=== PATIENT | female | born 1965 | race Caucasian/White ===

== ENCOUNTER 2018-05-29 12:34 | Emergency (ER) | payer BC ==
[~2018-05-29] VITALS: Ht 162.6 cm; Wt 118.1 kg
[~2018-05-29 12:34] MED LIST: ESCITALOPRAM OX10 MG PO; METF500T9 PO; MULT1TAB52 PO
--- NOTE | 2018-05-29 12:57 | PHYS DOC ---
Past History Past Medical History: Depression, Hypertension, Hepatitis, Kidney Stones, Other Past Surgical History: Hysterectomy Alcohol Use: Rarely Drug Use: Cocaine Adult General Chief Complaint Chief Complaint: FLANK PAIN HPI HPI 52-year-old female presents with abdominal pain and left flank pain. Patient states the pain started while she was at rest yesterday. It feels similar to previous episodes where she had a kidney stone. The pain has increased during the day today. She has urinary urgency and frequency but very little output. She denies fever or chills at home. Review of Systems Review of Systems Constitutional: Denies fever or chills [] Eyes: Denies change in visual acuity, redness, or eye pain [] HENT: Denies nasal congestion or sore throat [] Respiratory: Denies cough or shortness of breath [] Cardiovascular: No additional information not addressed in HPI [] GI: Denies abdominal pain, nausea, vomiting, bloody stools or diarrhea [] : Urinary urgency[] Musculoskeletal: Left flank pain[] Integument: Denies rash or skin lesions [] Neurologic: Denies headache, focal weakness or sensory changes [] Endocrine: Denies polyuria or polydipsia [] All other systems were reviewed and found to be within normal limits, except as documented in this note. Current Medications Current Medications Current Medications Medications (Trade) Dose Ordered Sig/[facility] Start Time Stop Time Status Last Admin Dose Admin Ketorolac Tromethamine (Toradol 30mg Vial) 30 mg 1X ONCE 05/29/18 13:00 05/29/18 13:01 UNV Sodium Chloride 1,000 ml @ 1,000 mls/hr 1X ONCE 05/29/18 13:00 05/29/18 13:59 UNV Allergies Allergies Allergies Coded Allergies Type Severity Reaction Last Updated Verified Penicillins Allergy Intermediate 07/11/16 Yes codeine Allergy Unknown 01/26/18 Yes Physical Exam Physical Exam Constitutional: Well developed, well nourished, no acute distress, non-toxic appearance. [] HENT: Normocephalic, atraumatic, bilateral external ears normal, oropharynx moist, no oral exudates, nose normal. [] Eyes: PERRLA, EOMI, conjunctiva normal, no discharge. [] Neck: Normal range of motion, no tenderness, supple, no stridor. [] Cardiovascular:Heart rate regular rhythm, no murmur [] Lungs & Thorax: Bilateral breath sounds clear to auscultation [] Abdomen: Suprapubic abdominal pain[] Skin: Warm, dry, no erythema, no rash. [] Back: CVA tenderness on left. [] Extremities: No tenderness, no cyanosis, no clubbing, ROM intact, no edema. [] Neurologic: Alert and oriented X 3, normal motor function, normal sensory function, no focal deficits noted. [] Psychologic: Affect normal, judgement normal, mood normal. [] Current Patient Data Vital Signs Vital Signs Date Time Temp Pulse Resp B/P (MAP) Pulse Ox O2 Delivery O2 Flow Rate FiO2 05/29/18 12:34 97.6 74 18 98 Room Air EKG EKG [] Radiology/Procedures Radiology/Procedures [] Impressions: CT abdomen and pelvis without contrast 05/29/2018 Clinical Indication: Left flank pain for 2 days concern for nephrolithiasis Comparison: None Technique: Multiple CT images of the abdomen and pelvis were obtained without contrast. *One or more of the following individualized dose reduction techniques were utilized for this examination: 1. Automated exposure control. 2. Adjustment of the mA and/or kV according to patient size. 3. Use of iterative reconstruction technique. Findings: Evaluation of the solid abdominopelvic viscera, vasculature and lymphadenopathy are limited in the absence of intravenous contrast. Heart size is normal. There is a 0.3 cm noncalcified pulmonary nodule in the medial left lower lobe series 2/image 10. There is a possible micronodular contour to the surface of the liver. Cholelithiasis in a nondilated gallbladder. Mild splenomegaly measuring 14.5 cm. Unenhanced contours of the adrenal glands and pancreas are grossly unremarkable. Both kidneys present without hydronephrosis. There is a 2 mm nonobstructive calculus in the superior pole the right kidney. Mild periportal and celiac axis lymphadenopathy. Celiac axis lymphadenopathy measures 1.2 x 2.0 cm series 2/image 34. Periportal lymphadenopathy measures 1.7 x 1.6 centers series 2/image 43. Abdominal aorta normal in caliber with trace calcified atheromatous disease. Small and large bowel loops are normal in caliber without obstruction. Appendix is not visualized and may be absent. There are bladder is decompressed with mild wall thickening and pericystic stranding. Hysterectomy with the vaginal cuff unremarkable. No iliac or inguinal lymphadenopathy. Moderate disc degeneration L5-S1. No destructive osseous lesions. IMPRESSION: 1. Nonobstructive right nephrolithiasis. Findings suggestive of cystitis. Correlation with urinalysis is recommended. 2. Nodular contour to the surface of the liver suggestive of chronic liver disease (cirrhosis). Clinical correlation is recommended. 3. Portal hypertension evidenced by mild splenomegaly. 4. Mild upper abdominal lymphadenopathy, may be reactive to chronic liver disease, though mona metastatic disease from an unknown primary cannot be excluded. Consideration for follow-up contrast enhanced CT or MRI for further evaluation. Clinical correlation is recommended. 5. Tiny, 0.3 cm, left lower lobe noncalcified pulmonary nodule, indeterminate. Follow-up CT chest is recommended. Electronically signed by: Sunshine Cates MD (05/29/2018 2:11 PM) [facility] [place] AND SIGNED BY: SUNSHINE CATES MD DATE: 05/29/18 1406 CC: SHIN PATEL DO; EDNA ROSA MD Course & Med Decision Making Course & Med Decision Making Pertinent Labs and Imaging studies reviewed. (See chart for details) The patient's CT did show a nonobstructing nephrolithiasis. There were several other significant findings. See radiology read for more details. Patient's labs are significant for an elevated alkaline phosphatase. Her urinalysis is significant for infection. We'll treat her with 1 g Rocephin IV in the ED followed by 5 days of Macrobid. I have given her Toradol by mouth for pain medication at home. She is stable for discharge at this time. [] Dragon Disclaimer Dragon Disclaimer This electronic medical record was generated, in whole or in part, using a voice recognition dictation system. Departure Departure: Referrals: EDNA ROSA MD (PCP) Scripts Ketorolac Tromethamine (KETOROLAC TROMETHAMINE) 10 Mg Tablet 1 TAB PO PRN Q6HRS for pain, #20 TAB Prov: SHIN PATEL DO 05/29/18 Nitrofurantoin Monohyd/M-Cryst (MACROBID 100 MG CAPSULE) 100 Mg Capsule 1 CAP PO BID for uti for 5 Days, #10 CAP Prov: SHIN PATEL DO 05/29/18 SHIN PATEL DO May 29, 2018 12:57
[2018-05-29] MEDS ORDERED: IV NORMAL SALINE 1,000ML 1,000 ML IV ONE (13:00)
[2018-05-29] MEDS ORDERED: KETOROLAC 30 MG/ML VIAL. IV ONE (13:15)
[2018-05-29 13:32] LABS: BASO % 0 % (0-3); EOS # 0.1 x10^3/uL (0.0-0.7); EOS % 1 % (0-3); HEMATOCRIT 44.1 % (36.0-47.0); HEMOGLOBIN 15.1 g/dL (12.0-15.5); LYMPH # 1.8 x10^3/uL (1.0-4.8); LYMPH % 14 % (24-48); MEAN CORPUSCULAR HEMOGLOBIN 31 pg (25-35); MEAN CORPUSCULAR HGB CONC 34 g/dL (31-37); MEAN CORPUSCULAR VOLUME 92 fL (79-100); MONO # 0.8 x10^3/uL (0.0-1.1); MONO % 6 % (0-9); NEUT # 10.5 x10^3uL (1.8-7.7); NEUT % 80 % (31-73); PLATELET COUNT 250 x10^3/uL (140-400); RED BLOOD COUNT 4.82 x10^6/uL (3.50-5.40); RED CELL DISTRIBUTION WIDTH 13.8 % (11.5-14.5); WHITE BLOOD COUNT 13.1 x10^3/uL (4.0-11.0)
[2018-05-29 13:40] LABS: ALBUMIN/GLOBULIN RATIO 0.6 (1.0-1.7); GFR 58.5; TOTAL BILIRUBIN 0.9 mg/dL (0.2-1.0); TOTAL PROTEIN 8.3 g/dL (6.4-8.2)
--- NOTE | 2018-05-29 14:14 | RAD ---
CT abdomen and pelvis without contrast 05/29/2018 Clinical Indication: Left flank pain for 2 days concern for nephrolithiasis Comparison: None Technique: Multiple CT images of the abdomen and pelvis were obtained without contrast. *One or more of the following individualized dose reduction techniques were utilized for this examination: 1. Automated exposure control. 2. Adjustment of the mA and/or kV according to patient size. 3. Use of iterative reconstruction technique. Findings: Evaluation of the solid abdominopelvic viscera, vasculature and lymphadenopathy are limited in the absence of intravenous contrast. Heart size is normal. There is a 0.3 cm noncalcified pulmonary nodule in the medial left lower lobe series 2/image 10. There is a possible micronodular contour to the surface of the liver. Cholelithiasis in a nondilated gallbladder. Mild splenomegaly measuring 14.5 cm. Unenhanced contours of the adrenal glands and pancreas are grossly unremarkable. Both kidneys present without hydronephrosis. There is a 2 mm nonobstructive calculus in the superior pole the right kidney. Mild periportal and celiac axis lymphadenopathy. Celiac axis lymphadenopathy measures 1.2 x 2.0 cm series 2/image 34. Periportal lymphadenopathy measures 1.7 x 1.6 centers series 2/image 43. Abdominal aorta normal in caliber with trace calcified atheromatous disease. Small and large bowel loops are normal in caliber without obstruction. Appendix is not visualized and may be absent. There are bladder is decompressed with mild wall thickening and pericystic stranding. Hysterectomy with the vaginal cuff unremarkable. No iliac or inguinal lymphadenopathy. Moderate disc degeneration L5-S1. No destructive osseous lesions. IMPRESSION: 1. Nonobstructive right nephrolithiasis. Findings suggestive of cystitis. Correlation with urinalysis is recommended. 2. Nodular contour to the surface of the liver suggestive of chronic liver disease (cirrhosis). Clinical correlation is recommended. 3. Portal hypertension evidenced by mild splenomegaly. 4. Mild upper abdominal lymphadenopathy, may be reactive to chronic liver disease, though mona metastatic disease from an unknown primary cannot be excluded. Consideration for follow-up contrast enhanced CT or MRI for further evaluation. Clinical correlation is recommended. 5. Tiny, 0.3 cm, left lower lobe noncalcified pulmonary nodule, indeterminate. Follow-up CT chest is recommended. Electronically signed by: Valentin Cates MD (05/29/2018 2:11 PM) [facility] [place]
[2018-05-29 14:27] VITALS: BP 183/94
[2018-05-29] MEDS ORDERED: NITR100C62 PO (14:36)
[2018-05-29] MEDS ORDERED: cefTRIAXone SODIUM 1 GM VIAL IV ONE (14:44)
[2018-05-29] MEDS ORDERED: IV NORMAL SALINE 50ML 50 ML ONE (14:44)
[2018-05-29] MEDS ORDERED: cefTRIAXone IV Push 1 GM VIAL. IVP ONE (15:00)
[2018-05-29] MEDS ORDERED: HYDR-971 PO (15:03)
[2018-05-29] MEDS ORDERED: KETO10TA PO (15:16)
== END 2018-05-29 15:00 | disposition home or self-care (01) ==
LOC: ER 12:34
DX: N20.0 Calculus of kidney (principal); K76.89 Other specified diseases of liver; K76.6 Portal hypertension; R16.1 Splenomegaly, not elsewhere classified; R59.1 Generalized enlarged lymph nodes; I10 Essential (primary) hypertension; R91.1 Solitary pulmonary nodule; R74.8 Abnormal levels of other serum enzymes; Z87.442 Personal history of urinary calculi; Z90.710 Acquired absence of both cervix and uterus; Z88.0 Allergy status to penicillin; Z88.5 Allergy status to narcotic agent
CPT/HCPCS: 36415; 74176; 80053; 85025; 96374; 96375; 99285; J0696; J1885; J7030

== ENCOUNTER 2020-02-04 02:05 | Emergency (ER) | payer BC ==
[~2020-02-04] VITALS: Ht 162.6 cm; Wt 118.1 kg
[~2020-02-04 02:05] MED LIST changes: +HYDR-3165 PO; +KETO10TA PO; +METF-658 PO; -METF500T9 PO; +MULT-445 PO; -MULT1TAB52 PO; +NITR100C62 PO
--- NOTE | 2020-02-04 02:23 | PHYS DOC ---
Past History Past Medical History: Depression, Diabetes, Hypertension, Hepatitis, Kidney Stones, Other Past Surgical History: Hysterectomy Alcohol Use: Rarely Drug Use: Cocaine General Adult EDM: Chief Complaint: ABDOMINAL PAIN HPI: HPI: 54-year-old female presents with epigastric abdominal pain. She was sitting watching TV pattern hour prior to arrival with she had have epigastric discomfort and pain. Now radiates through to her back. It is moderate in intensity. She tried to lay down to go to bed, but the pain kept her from falling asleep. She has not had pain like this before. She has passed a kidney stone in the past and it did not feel like this. She has not noticed a pattern of pain with eating lately. She still has her appendix and gallbladder. She does have some abdominal discomfort after defecation, but this usually last 10 or 15 minutes and goes away. This pain is been lasting over an hour. She denies fever chills. She last ate about 2 hours before the pain started. Review of Systems: Review of Systems: Constitutional: Denies fever or chills Eyes: Denies change in visual acuity HENT: Denies nasal congestion or sore throat Respiratory: Denies cough or shortness of breath Cardiovascular: Denies chest pain or edema GI: Epigastric abdominal pain, nausea. Denies vomiting, bloody stools or diarrhea : Denies dysuria Musculoskeletal: Denies back pain or joint pain Integument: Denies rash Neurologic: Denies headache, focal weakness or sensory changes Endocrine: Denies polyuria or polydipsia Lymphatic: Denies swollen glands Psychiatric: Denies depression or anxiety Heart Score: Risk Factors: Risk Factors: DM, Current or recent (<one month) smoker, HTN, HLP, family history of CAD, obesity. Risk Scores: Score 0 - 3: 2.5% MACE over next 6 weeks - Discharge Home Score 4 - 6: 20.3% MACE over next 6 weeks - Admit for Clinical Observation Score 7 - 10: 72.7% MACE over next 6 weeks - Early Invasive Strategies Current Medications: Current Meds: Current Medications Medications (Trade) Dose Ordered Sig/[facility] Start Time Stop Time Status Last Admin Dose Admin Ondansetron HCl (Zofran) 4 mg 1X ONCE 02/04/20 02:30 02/04/20 02:31 Sodium Chloride 1,000 ml @ 1,000 mls/hr 1X ONCE 02/04/20 02:30 02/04/20 03:29 Allergies: Allergies: Allergies Coded Allergies Type Severity Reaction Last Updated Verified Penicillins Allergy Intermediate 07/11/16 Yes codeine Allergy Unknown 01/26/18 Yes Physical Exam: PE: Constitutional: Well developed, morbidly obese, well nourished, no acute distress, non-toxic appearance. [] HENT: Normocephalic, atraumatic, bilateral external ears normal, oropharynx moist, no oral exudates, nose normal. [] Eyes: PERRLA, EOMI, conjunctiva normal, no discharge. [] Neck: Normal range of motion, no tenderness, supple, no stridor. [] Cardiovascular: Heart rate regular rhythm, no murmur [] Lungs & Thorax: Bilateral breath sounds clear to auscultation [] Abdomen: Bowel sounds normal, soft, epigastric tenderness, no masses, no pulsatile masses. [] Skin: Warm, dry, no erythema, no rash. [] Back: No tenderness, no CVA tenderness. [] Extremities: No tenderness, no cyanosis, no clubbing, ROM intact, no edema. [] Neurologic: Alert and oriented X 3, normal motor function, normal sensory function, no focal deficits noted. [] Psychologic: Affect normal, judgement normal, mood normal. [] Current Patient Data: Vital Signs: Vital Signs Date Time Temp Pulse Resp B/P (MAP) Pulse Ox O2 Delivery O2 Flow Rate FiO2 02/04/20 02:09 97.3 65 22 143/87 (105) 98 Room Air EKG: EKG: [] Radiology/Procedures: Radiology/Procedures: [] Impressions: EXAM: CT Abdomen and Pelvis with IV contrast INDICATION: Reason: upper abdominal pain, OMNI 300, 75ml / Spl. Instructions: / History: TECHNIQUE: Multi-detector row CT images were acquired from the lung bases through the abdomen and pelvis with the use of IV contrast. Sagittal and coronal images were acquired from the transaxial data. All CT scans performed at this facility utilize dose optimization techniques as appropriate to the exam, including the following: Automated exposure control and adjustment of the mA and/or KV according to patient size (this includes techniques or standardized protocols for targeted exams where dose is indication/reason for exam). IV CONTRAST: Administered ORAL CONTRAST: Not administered COMPARISON: Abdomen pelvis CT without IV contrast of 05/29/2018 FINDINGS: LOWER CHEST: Unremarkable LIVER: Hepatomegaly. BILIARY SYSTEM: Gallbladder contains several stones. Bile ducts are not dilated. PANCREAS: Unremarkable SPLEEN: Splenomegaly marginally worse with the spleen now measuring 16.3 cm compared with 14.7 cm previously. ADRENALS: Unremarkable KIDNEYS & URETERS: Nonobstructing punctate right nephrolithiasis. BLADDER: Unremarkable REPRODUCTIVE ORGANS: Unremarkable GASTROINTESTINAL: The stomach, small bowel, and colon are unremarkable. The appendix is normal. MESENTERY/PERITONEUM/RETROPERITONEUM: Unremarkable VASCULAR: Unremarkable LYMPH NODES: Persistent upper abdominal lymphadenopathy, primarily periportal. OSSEOUS & SOFT TISSUES: Unremarkable IMPRESSION: 1. Hepatosplenomegaly with cholelithiasis and periportal adenopathy. No biliary dilation or obstruction. Query chronic liver disease such as possible viral hepatitis. Correlate clinically. 2. Nonobstructing right renal nephrolithiasis. Electronically signed by: Haja Pfeiffer MD (02/04/2020 4:05 AM) [facility] [place]CTATED AND SIGNED BY: HAJA PFEIFFER MD DATE: 02/04/20404 CC: SHIN PATEL DO; EDNA ROSA MD ~ Course & Med Decision Making: Course & Med Decision Making Pertinent Labs and Imaging studies reviewed. (See chart for details) The patient's labs are unremarkable. Her urinalysis is negative for infection. Her CT scan does show cholelithiasis, but no biliary dilation. She does have hepatosplenomegaly. See official report for more details. This may have been an intermittent obstruction due to her cholelithiasis. The patient should consider surgical consultation for her gallbladder. She is stable for discharge at this time. [] Dragon Disclaimer: Dragon Disclaimer: This electronic medical record was generated, in whole or in part, using a voice recognition dictation system. Departure Departure: Impression: Primary Impression: Epigastric abdominal pain Additional Impression: Cholelithiasis Qualified Codes: K80.20 - Calculus of gallbladder without cholecystitis without obstruction Disposition: HOME/RESIDENCE PRIOR TO ADM Condition: STABLE Referrals: EDNA ROSA MD (PCP) Patient Instructions: Abdominal Pain, [id number], Cholelithiasis, [id number] Justification of Admission: Justification of Admission: Justification of Admission Dx: N/A SHIN PATEL DO Feb 04, 2020 02:23
[2020-02-04] MEDS ORDERED: CONTRAST GIVEN MC PRN (02:30)
[2020-02-04] MEDS ORDERED: ONDANSETRON PF 4 MG/2 ML VIAL. IVP ONE (02:30)
[2020-02-04] MEDS ORDERED: MORPHINE SULFATE 2 MG/ML DISP.SYRIN. IV ONE (02:30)
[2020-02-04] MEDS ORDERED: IV NORMAL SALINE 1,000ML 1,000 ML IV ONE (02:30)
[2020-02-04] MEDS ORDERED: IOHEXOL 300 MG/ML 75 ML VIAL. IV ONE (03:00)
[2020-02-04 03:09] LABS: BASO % 0 % (0-3); EOS # 0.1 x10^3/uL (0.0-0.7); EOS % 1 % (0-3); HEMATOCRIT 41.7 % (36.0-47.0); HEMOGLOBIN 13.6 g/dL (12.0-15.5); LYMPH # 3.1 x10^3/uL (1.0-4.8); LYMPH % 26 % (24-48); MEAN CORPUSCULAR HEMOGLOBIN 30 pg (25-35); MEAN CORPUSCULAR HGB CONC 33 g/dL (31-37); MEAN CORPUSCULAR VOLUME 90 fL (79-100); MONO # 0.8 x10^3/uL (0.0-1.1); MONO % 7 % (0-9); NEUT # 7.7 x10^3uL (1.8-7.7); NEUT % 66 % (31-73); PLATELET COUNT 228 x10^3/uL (140-400); RED BLOOD COUNT 4.62 x10^6/uL (3.50-5.40); RED CELL DISTRIBUTION WIDTH 14.1 % (11.5-14.5); WHITE BLOOD COUNT 11.7 x10^3/uL (4.0-11.0)
[2020-02-04 03:18] LABS: CALCIUM 9.4 mg/dL (8.5-10.1); CREATININE 1.2 mg/dL (0.6-1.0); POTASSIUM 3.7 mmol/L (3.5-5.1)
[2020-02-04 03:23] LABS: BILIRUBIN,URINE NEG (NEG); CLARITY,URINE HAZY; COLOR,URINE YELLOW; GLUCOSE,URINE NEG (NEG)
[2020-02-04 03:24] LABS: BACTERIA,URINE FEW /HPF (0-FEW); NITRITE,URINE NEG (NEG); RBC,URINE OCC /HPF (0-2); SQUAMOUS EPITHELIAL CELL,UR MANY /LPF
[2020-02-04 03:25] LABS: ALBUMIN 3.3 g/dL (3.4-5.0); ALBUMIN/GLOBULIN RATIO 0.7 (1.0-1.7); TOTAL BILIRUBIN 0.6 mg/dL (0.2-1.0); TOTAL PROTEIN 8.2 g/dL (6.4-8.2)
--- NOTE | 2020-02-04 04:08 | RAD ---
EXAM: CT Abdomen and Pelvis with IV contrast INDICATION: Reason: upper abdominal pain, OMNI 300, 75ml / Spl. Instructions: / History: TECHNIQUE: Multi-detector row CT images were acquired from the lung bases through the abdomen and pelvis with the use of IV contrast. Sagittal and coronal images were acquired from the transaxial data. All CT scans performed at this facility utilize dose optimization techniques as appropriate to the exam, including the following: Automated exposure control and adjustment of the mA and/or KV according to patient size (this includes techniques or standardized protocols for targeted exams where dose is indication/reason for exam). IV CONTRAST: Administered ORAL CONTRAST: Not administered COMPARISON: Abdomen pelvis CT without IV contrast of 05/29/2018 FINDINGS: LOWER CHEST: Unremarkable LIVER: Hepatomegaly. BILIARY SYSTEM: Gallbladder contains several stones. Bile ducts are not dilated. PANCREAS: Unremarkable SPLEEN: Splenomegaly marginally worse with the spleen now measuring 16.3 cm compared with 14.7 cm previously. ADRENALS: Unremarkable KIDNEYS & URETERS: Nonobstructing punctate right nephrolithiasis. BLADDER: Unremarkable REPRODUCTIVE ORGANS: Unremarkable GASTROINTESTINAL: The stomach, small bowel, and colon are unremarkable. The appendix is normal. MESENTERY/PERITONEUM/RETROPERITONEUM: Unremarkable VASCULAR: Unremarkable LYMPH NODES: Persistent upper abdominal lymphadenopathy, primarily periportal. OSSEOUS & SOFT TISSUES: Unremarkable IMPRESSION: 1. Hepatosplenomegaly with cholelithiasis and periportal adenopathy. No biliary dilation or obstruction. Query chronic liver disease such as possible viral hepatitis. Correlate clinically. 2. Nonobstructing right renal nephrolithiasis. Electronically signed by: Cliff Pfeiffer MD (02/04/2020 4:05 AM) [facility] [place]
[2020-02-04 04:15] VITALS: BP 131/46
== END 2020-02-04 04:25 | disposition home or self-care (01) ==
LOC: ER 02:05
DX: K80.20 Calculus of gallbladder without cholecystitis without obstruction (principal); E11.9 Type 2 diabetes mellitus without complications; I10 Essential (primary) hypertension; Z87.442 Personal history of urinary calculi; Z90.710 Acquired absence of both cervix and uterus; Z88.0 Allergy status to penicillin; Z88.5 Allergy status to narcotic agent
CPT/HCPCS: 36415; 74177; 80053; 81001; 83690; 85025; 96374; 96375; 99285; J2270; J2405; J7030; Q9967

== ENCOUNTER → 2020-10-22 | Outpatient (CLI) | payer BC ==
--- NOTE | 2020-10-23 16:57 | RAD ---
DATE: 10/22/2020 EXAM: MAMMO AMIRA SCREENING BILATERAL HISTORY: Routine screening. COMPARISON: Bilateral mammogram 05/05/2019, [facility] was utilized. FINDINGS: The breast parenchyma shows scattered fibroglandular densities. There are 2 intramammary lymph nodes of the upper outer right breast that are stable. There are a few benign calcifications bilaterally. There are no dominant masses, suspicious microcalcifications or evidence of architectural distortion. IMPRESSION: No mammographic evidence of malignancy. Recommend routine mammogram screening. BI-RADS CATEGORY: 2 BENIGN FINDING RECOMMENDED FOLLOW-UP: 12M 12 MONTH FOLLOW-UP PQRS compliance statement: Patient information was entered into a reminder system with a target due date for the next mammogram. Mammography is a sensitive method for finding small breast cancers, but it does not detect them all and is not a substitute for careful clinical examination. A negative mammogram does not negate a clinically suspicious finding and should not result in delay in biopsying a clinically suspicious abnormality. "Our facility is accredited by the [employer] Mammography Program."
== END ==
LOC: MAMMO 09:46
PROVIDERS: ATTEND Family Medicine
DX: Z12.31 Encounter for screening mammogram for malignant neoplasm of breast (principal)
CPT/HCPCS: 77063; 77067

== ENCOUNTER 2020-11-06 21:39 | Emergency (ER) | payer BC ==
[~2020-11-06] VITALS: Ht 162.6 cm; Wt 118.1 kg
--- NOTE | 2020-11-06 21:46 | PHYS DOC ---
Past History Past Medical History: Depression, Diabetes, Hypertension, Hepatitis, Kidney Stones, Other Past Surgical History: Hysterectomy Alcohol Use: Rarely Drug Use: Cocaine General Adult HPI: HPI: ".. I tripped and fell down some stair..s.. I fell mainly on my Lt side..my elbow.. My Lt. side chest really hurts..." Patient [age] a [age]-year-[age] female with history of fall down several stairs. Patient landed primarily on her left side. Has contusions to her elbow and left chest wall. Patient complains of severe pain in her left elbow and chest wall. Does have localized contusions to left elbow. Patient denies any injury to head or neck. Patient denies any history of fever or chills. No history immunosuppression. Denies history of recent travel outside cancer area. No history immunosuppression. Patient does have a past medical history of depression, diabetes, hypertension, hepatitis, kidney stones, obesity, and deconditioning. Patient normally follows with Dr. Rosa. Review of Systems: Review of Systems: Constitutional: Denies fever or chills Eyes: Denies change in visual acuity HENT: Denies nasal congestion or sore throat Respiratory: Denies cough or shortness of breath Cardiovascular: Complains of left-sided chest pain GI: Complains of left sided abdominal pain, nausea. Denies, vomiting, bloody stools or diarrhea : Denies dysuria Musculoskeletal: Complains of left arm and elbow pain Integument: Denies rash Neurologic: Denies headache, focal weakness or sensory changes Endocrine: Denies polyuria or polydipsia Lymphatic: Denies swollen glands Psychiatric: History of depression or anxiety Family History: Family History: Noncontributory to presentation Current Medications: Current Meds: See nursing for home meds Allergies: Allergies: Allergies Coded Allergies Type Severity Reaction Last Updated Verified Penicillins Allergy Intermediate 07/11/16 Yes codeine Allergy Unknown 01/26/18 Yes Physical Exam: PE: Constitutional: Moderate acute distress, non-toxic appearance. [] HENT: Normocephalic, atraumatic, bilateral external ears normal, oropharynx moist, no oral exudates, nose normal. [] Eyes: PERRLA, EOMI, conjunctiva normal, no discharge. [] Neck: Normal range of motion, no tenderness, supple, no stridor. [] Cardiovascular:Heart rate regular rhythm, no murmur [PMI to the left Lungs & Thorax: Bilateral breath sounds equal apex auscultation. Left lower chest wall tenderness Abdomen: Bowel sounds normal, soft, left upper abdomen tenderness, no masses, no pulsatile masses. [] Obese. Old surgical scars Skin: Warm, dry, no erythema, no rash. Patient abrasions left elbow Back: No tenderness, no CVA tenderness. [] Extremities: Left elbow tenderness, no cyanosis, no clubbing, ROM intact, left elbow edema. Left elbow ecchymosis Neurologic: Alert and oriented X 3, patient moves all extremities on request, does have distal sensory,, no focal deficits noted. [] Psychologic: Affect anxious, judgement normal, mood normal. [] EKG: EKG: My interpretation EKG shows a sinus rhythm at 81 bpm. Left axis. No findings acute STEMI of contralateral changes. [] Radiology/Procedures: Radiology/Procedures: [address] [address] IMAGING REPORT Signed PATIENT: OLIVERIO ST ACCOUNT: [id number] : 1965 LOCATION: ER AGE: 54 SEX: F EXAM STATUS: REG ER ORD. PHYSICIAN: JOEY DEL ROSARIO MD REASON: Fell down stairs, left sided chest and abd pain Omni 350 75cc PROCEDURE: CT ANGIO CHEST W ABD PEL W/ Study: CT angiography of the chest, abdomen and pelvis Indication: Fall down the stairs. Left-sided chest and abdominal pain. Comparison: CT abdomen/pelvis 02/04/2020 Technique: Helical CT imaging performed of the chest, abdomen and pelvis after the intravenous administration of 75 cc Omnipaque 350 contrast. Sagittal and coronal 3D MIP reconstructions were obtained. One or more of the following individualized dose reduction techniques were utilized for this examination: 1. Automated exposure control 2. Adjustment of the mA and/or kV according to patient size 3. Use of iterative reconstruction technique. Findings: Vasculature: No aortic dissection or aneurysm. The visualized great vessels are patent. Patent celiac, SMA, renal artery and inferior mesenteric artery origins. Unremarkable iliac arteries and partially imaged femoral vessels. Mild calcific atherosclerosis. Non-vascular Findings: Chest: No retrosternal hematoma. Within normal limits mediastinal and hilar lymph nodes. Unremarkable esophagus. Flat nodules abutting the right minor fissure typical of lymph nodes, image 33 series 5. No confluent infiltrate, pleural effusion or pneumothorax. Patent central airways. A few mildly prominent axillary lymph nodes measuring right around 1 cm short axis. No displaced rib fracture. Intact sternum. No acute fracture seen throughout the thoracic spine. Abdomen/pelvis: Similar mild prominence of the liver which exhibits mildly undulating margins and prominence of the caudate lobe. Several gallstones. Nondilated biliary tree. Unremarkable pancreas. Enlarged spleen at 14.3 cm craniocaudal. No adrenal gland mass. No acute renal parenchymal abnormality. Punctate nonobstructing intrarenal stone on the right. Unremarkable bladder. Absent uterus. No adnexal mass. Unremarkable colon. Nonvisualized appendix. Nonobstructed small bowel. Unremarkable stomach. Mild body wall edema at a few locations. No large soft tissue hematoma. Several prominent upper abdominal lymph nodes were also present on the comparison and have not significant changed. No acute fracture seen throughout the pelvis or lumbar spine. Impression: 1. No major vascular injury throughout the chest, abdomen or pelvis. 2. No sequela of acute trauma seen throughout the chest, abdomen or pelvis. 3. Morphologic changes of the liver which could indicate cirrhosis. The spleen is enlarged. Gallstones without findings of cholecystitis. Punctate nonobstructing intrarenal stone on the right. Electronically signed by: FABIO ARRIAZA MD (11/06/2020 11:46 PM) [facility] DICTATED AND SIGNED BY: FABIO ARRIAZA MD DATE: 11/06/202331 CC: JOEY DEL ROSARIO MD; EDNA ROSA MD ~MTH0 [address] [address] IMAGING REPORT Signed PATIENT: OLIVERIO ST ACCOUNT: [id number] : 1965 LOCATION: ER AGE: 54 SEX: F EXAM STATUS: REG ER ORD. PHYSICIAN: JOEY DEL ROSARIO MD REASON: Fall down stairs, left side chest pain PROCEDURE: CHEST PA & LATERAL Exam: Chest 2 views INDICATION: Fall downstairs, left-sided chest pain TECHNIQUE: Frontal and lateral views the chest Comparisons: None FINDINGS: The cardiomediastinal silhouette and pulmonary vessels are within normal limits. The lung and pleural spaces are clear. IMPRESSION: No acute cardiopulmonary process. Electronically signed by: Dorita Kim MD (11/06/2020 11:31 PM) [facility] DICTATED AND SIGNED BY: DORITA KIM MD DATE: 11/06/202329 CC: JOEY DEL ROSARIO MD; EDNA ROSA MD ~MTH0 0 [][place] [address] IMAGING REPORT Signed PATIENT: OLIVERIO ST ACCOUNT: [id number] : 1965 LOCATION: ER AGE: 54 SEX: F EXAM STATUS: REG ER ORD. PHYSICIAN: JOEY DEL ROSARIO MD REASON: fall down stairs, left elbow pain PROCEDURE: ELBOW LEFT 3V Study: XR ELBOW COMPLETE_LEFT 3+VIEWS Indication: Fall. Elbow pain. Comparison: None. Findings: No acute fracture. Alignment is within normal limits. No large elbow joint effusion. No retained radiopaque foreign body within soft tissues. Impression: No acute osseous abnormality. Electronically signed by: FABIO ARRIAZA MD (11/06/2020 11:32 PM) [facility] DICTATED AND SIGNED BY: FABIO ARRIAZA MD DATE: 11/06/202329 CC: JOEY DEL ROSARIO MD; EDNA ROSA MD ~MTH0 0 Heart Score: C/O Chest Pain: N/A HEART Score for Chest Pain: HEART Score for Chest Pain Response (Comments) Value History Slighlty/Non-Suspicious 0 ECG Normal 0 Age >45 - < 65 1 Risk Factors 1 or 2 Risk Factors 1 Troponin < Normal Limit 0 Total 2 Risk Factors: Risk Factors: DM, Current or recent (<one month) smoker, HTN, HLP, family history of CAD, obesity. Risk Scores: Score 0 - 3: 2.5% MACE over next 6 weeks - Discharge Home Score 4 - 6: 20.3% MACE over next 6 weeks - Admit for Clinical Observation Score 7 - 10: 72.7% MACE over next 6 weeks - Early Invasive Strategies Course & Med Decision Making: Course & Med Decision Making Pertinent Labs and Imaging studies reviewed. (See chart for details) Patient use ice packs as needed. Take Tylenol and ibuprofen for pain. For marked pain may take Vicoprofen up to 4 times a day. Follow-up primary care. Return if any concerns. Expect this continued stiffness and soreness over the next 3 days for improvement. Consider bony-ray if no improvement of left elbow. Return if any concerns. Impression: 1. Fall 2. Contusions [] Dragon Disclaimer: Dragon Disclaimer: This electronic medical record was generated, in whole or in part, using a voice recognition dictation system. Departure Departure: Referrals: EDNA ROSA MD (PCP) Scripts Hydrocodone/Ibuprofen (HYDROCODONE-IBUPROFEN 7.5-200 ) 1 Each Tablet 1 TAB PO PRN Q6HRS PRN for PAIN, #30 TAB 0 Refills Prov: JOEY DEL ROSARIO MD 11/07/20 Hydrocodone/Ibuprofen (HYDROCODONE-IBUPROFEN 7.5-200 ) 1 Each Tablet 1 TAB PO PRN Q6HRS PRN for PAIN, #30 TAB 0 Refills Prov: JOEY DEL ROSARIO MD 11/07/20 Dragon Disclaimer This chart was dictated in whole or in part using Voice Recognition software in a busy, high-work load, and often noisy Emergency Department environment. It may contain unintended and wholly unrecognized errors or omissions. Dragon Disclaimer This chart was dictated in whole or in part using Voice Recognition software in a busy, high-work load, and often noisy Emergency Department environment. It may contain unintended and wholly unrecognized errors or omissions. JOEY DEL ROSARIO MD Nov 06, 2020 21:46
[2020-11-06] MEDS ORDERED: IOHEXOL 350 MG/ML 100 ML VIAL. IV ONE (22:15)
[2020-11-06] MEDS ORDERED: MORPHINE SULFATE 10 MG/ML SYRINGE. SQ ONE (22:30)
[2020-11-06 22:47] LABS: HEMATOCRIT 40.4 % (36.0-47.0); HEMOGLOBIN 13.2 g/dL (12.0-15.5); RED BLOOD COUNT 4.48 x10^6/uL (3.50-5.40); RED CELL DISTRIBUTION WIDTH 14.9 % (11.5-14.5)
[2020-11-06 22:51] LABS: CALCIUM 9.3 mg/dL (8.5-10.1); CREATININE 1.4 mg/dL (0.6-1.0); GFR 39.3; POTASSIUM 4.5 mmol/L (3.5-5.1)
--- NOTE | 2020-11-06 23:33 | RAD ---
Exam: Chest 2 views INDICATION: Fall downstairs, left-sided chest pain TECHNIQUE: Frontal and lateral views the chest Comparisons: None FINDINGS: The cardiomediastinal silhouette and pulmonary vessels are within normal limits. The lung and pleural spaces are clear. IMPRESSION: No acute cardiopulmonary process. Electronically signed by: Dorita Odonnell MD (11/06/2020 11:31 PM) [facility]
--- NOTE | 2020-11-06 23:35 | RAD ---
Study: XR ELBOW COMPLETE_LEFT 3+VIEWS Indication: Fall. Elbow pain. Comparison: None. Findings: No acute fracture. Alignment is within normal limits. No large elbow joint effusion. No retained radi opaque foreign body within soft tissues. Impression: No acute osseous abnormality. Electronically signed by: FABIO ARRIAZA MD (11/06/2020 11:32 PM) [facility]
[2020-11-06] MEDS ORDERED: IV RINGERS SOLUTION,LACTATED 1,000 ML IV ONE (23:45)
--- NOTE | 2020-11-06 23:48 | RAD ---
Study: CT angiography of the chest, abdomen and pelvis Indication: Fall down the stairs. Left-sided chest and abdominal pain. Comparison: CT abdomen/pelvis 02/04/2020 Technique: Helical CT imaging performed of the chest, abdomen and pelvis after the intravenous admini stration of 75 cc Omnipaque 350 contrast. Sagittal and coronal 3D MIP reconstructions were obtained. One or more of the following individualized dose reduction techniques were utilized for this examinat ion: 1. Automated exposure control 2. Adjustment of the mA and/or kV according to patient size 3. Use of iterative reconstruction technique. Findings: Vasculature: No aortic dissection or aneurysm. The visualized great vessels are patent. Patent celiac, SMA, renal artery and inferior mesenteric artery origins. Unremarkable iliac arteries and partially imaged femor al vessels. Mild calcific atherosclerosis. Non-vascular Findings: Chest: No retrosternal hematoma. Within normal limits mediastinal and hilar lymph nodes. Unremarkable esopha nolan. Flat nodules abutting the right minor fissure typical of lymph nodes, image 33 series 5. No confluent infiltrate, pleural effusion or pneumothorax. Patent central airways. A few mildly prominent axillary lymph nodes measuring right around 1 cm short axis. No displaced rib fracture. Intact sternum. No acute fracture seen throughout the thoracic spine. Abdomen/pelvis: Similar mild prominence of the liver which exhibits mildly undulating margins and prominence of the c audate lobe. Several gallstones. Nondilated biliary tree. Unremarkable pancreas. Enlarged spleen at 1 4.3 cm craniocaudal. No adrenal gland mass. No acute renal parenchymal abnormality. Punctate nonobstr ucting intrarenal stone on the right. Unremarkable bladder. Absent uterus. No adnexal mass. Unremarkable colon. Nonvisualized appendix. Nonobstructed small bowel. Unremarkable stomach. Mild body wall edema at a few locations. No large soft tissue hematoma. Several prominent upper abdominal lymph nodes were also present on the comparison and have not signif icant changed. No acute fracture seen throughout the pelvis or lumbar spine. Impression: 1. No major vascular injury throughout the chest, abdomen or pelvis. 2. No sequela of acute trauma seen throughout the chest, abdomen or pelvis. 3. Morphologic changes of the liver which could indicate cirrhosis. The spleen is enlarged. Gallston es without findings of cholecystitis. Punctate nonobstructing intrarenal stone on the right. Electronically signed by: FABIO ARRIAZA MD (11/06/2020 11:46 PM) [facility]
[2020-11-07] MEDS ORDERED: HYDR-1179 PO ×2 (00:01→00:36)
[2020-11-07 00:07] VITALS: BP 98/61
[2020-11-07 00:08] LABS: BARBITURATES NEG (NEG); BENZODIAZEPINES NEG (NEG); CANNABINOIDS NEG (NEG); COCAINE NEG (NEG); METHADONE NEG (NEG); OPIATES POS (NEG); PHENCYCLIDINE NEG (NEG)
[2020-11-07 00:10] LABS: AMPHETAMINE/METHAMPHETAMINE NEG (NEG)
[2020-11-07 00:21] LABS: BACTERIA,URINE 0 /HPF (0-FEW); BILIRUBIN,URINE NEG (NEG); CLARITY,URINE CLEAR; COLOR,URINE AMBER; GLUCOSE,URINE NEG (NEG); NITRITE,URINE NEG (NEG); RBC,URINE 0 /HPF (0-2); SQUAMOUS EPITHELIAL CELL,UR MANY /LPF; UROBILINOGEN,URINE 0.2 mg/dL (0.2 mg/dL); WBC,URINE 0 /HPF (0-4)
[2020-11-07] MEDS ORDERED: MORPHINE SULFATE 10 MG/ML SYRINGE. SQ ONE (00:30)
--- NOTE | 2020-11-07 06:20 | EKG ---
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
== END 2020-11-07 00:45 | disposition home or self-care (01) ==
LOC: ER 21:39
DX: S50.02XA Contusion of left elbow, initial encounter (principal); S20.212A Contusion of left front wall of thorax, initial encounter; R10.12 Left upper quadrant pain; F32.9 Major depressive disorder, single episode, unspecified; E11.9 Type 2 diabetes mellitus without complications; I10 Essential (primary) hypertension; Z87.442 Personal history of urinary calculi; Z88.0 Allergy status to penicillin; Z88.5 Allergy status to narcotic agent; W01.0XXA Fall on same level from slipping, tripping and stumbling without subsequent striking against object, initial encounter; Y93.89 Activity, other specified; Y92.89 Other specified places as the place of occurrence of the external cause; Y99.8 Other external cause status
CPT/HCPCS: 36415; 71046; 71275; 73080; 74177; 80048; 80307; 81001; 84484; 85027; 93005; 96360; 96372; 99285; J2270; J7120; Q9967

== ENCOUNTER → 2020-11-11 | Outpatient (CLI) | payer BC ==
[2020-11-07 00:07] VITALS: BP 98/61
[~2020-11-11] MED LIST changes: +HYDR-1179 PO
--- NOTE | 2020-11-11 09:51 | RAD ---
XR RIBS MIN 3 VIEWS LT W/PA CHEST History: Left rib pain. Fall Wednes night. Comparison: Chest x-ray 11/06/2020. Technique: PA chest and 3 views of the ribs. Findings: The lungs are adequately and symmectrically inflated. No airspace consolidation, pleural effusion or pneumothorax. The cardiomediastinal silhoutte and pulmonary vasculature are within normal limits. Mil d degenerative changes of the spine. No rib fractures identified. Soft tissues are unremarkable. Impression: 1. No acute cardiopulmonary process. No rib fracture or sequela identified. Electronically signed by: Stephan Giles MD (11/11/2020 9:49 AM) [facility]
== END ==
LOC: RAD 09:29
PROVIDERS: ATTEND Family Medicine
DX: R07.81 Pleurodynia (principal)
CPT/HCPCS: 71101